=== PATIENT | female | born 1935 | race Caucasian/White ===

== ENCOUNTER → 2023-05-16 10:31 | Outpatient (REF) | payer MEDICARE, SELFPAY ==
[2023-05-16 13:25] LABS: Blood Urea Nitrogen 36 mg/dl (7-17); Carbon Dioxide 29 mmol/L (22-30); Chloride 94 mmol/L (98-107); Glucose 118 mg/dl (70-99); Potassium 5.2 mmol/L (3.5-5.1); Sodium 132 mmol/L (135-145); eGFR > 60.00
== END ==
LOC: OLABSOL 10:31
PROVIDERS: ATTENDING PHYSICIAN Internal Medicine Cardiovascular Disease
DX: I10 Essential (primary) hypertension (principal)
CPT/HCPCS: 36415; 80048

== ENCOUNTER → 2023-05-28 09:45 | Outpatient (REF) | payer MEDICARE, SELFPAY ==
[2023-05-28 11:19] LABS: Blood Urea Nitrogen 29 mg/dl (7-17); Calcium 9.8 mg/dl (8.4-10.2); Carbon Dioxide 31 mmol/L (22-30); Chloride 97 mmol/L (98-107); Glucose 138 mg/dl (70-99); Sodium 133 mmol/L (135-145); eGFR > 60.00
== END ==
LOC: OLABSOL 09:45
PROVIDERS: ATTENDING PHYSICIAN Internal Medicine Cardiovascular Disease
DX: I10 Essential (primary) hypertension (principal)
CPT/HCPCS: 36415; 80048

== ENCOUNTER → 2023-07-30 09:36 | Outpatient (REF) | payer MEDICARE, SELFPAY ==
[2023-07-30 10:28] LABS: Hematocrit 36.2 % (37.0-47.0); Hemoglobin 11.6 g/dL (12.0-16.0); Mean Corpuscular Hgb 28.8 pg (27.0-31.0); Mean Corpuscular Volume 89.8 fL (81.0-99.0); Mean Platelet Volume 9.9 fL (7.4-10.4); Platelet Count 205 10^3/uL (130-400); Red Blood Cell Count 4.03 10^6/uL (4.20-5.40); Red Cell Dist. Width 14.1 % (11.5-14.5); White Blood Cell Count 5.7 10^3/uL (4.8-10.8)
[2023-07-30 10:43] LABS: ALT (SGPT) 25 U/L (0-35); AST (SGOT) 28 U/L (14-36); Alkaline Phosphatase 148 U/L (38-126); Blood Urea Nitrogen 33 mg/dl (7-17); Carbon Dioxide 29 mmol/L (22-30); Chloride 100 mmol/L (98-107); Glucose 115 mg/dl (70-99); Potassium 4.5 mmol/L (3.5-5.1); Sodium 134 mmol/L (135-145); Total Bilirubin 0.3 mg/dl (0.2-1.3); Total Protein 6.5 g/dl (6.3-8.2); eGFR > 60.00
[2023-07-30 10:47] LABS: C-Reactive Protein < 5.00 mg/L (0.0-10.00)
[2023-07-30 10:59] LABS: Erythrocyte Sed Rate 22 mm/hour (0-20)
[2023-07-30 12:48] LABS: Glycohemoglobin (HgbA1c) 7.2 % (4.0-5.6)
== END ==
LOC: OLABSOL 09:36
PROVIDERS: ATTENDING PHYSICIAN Nurse Practitioner Gerontology
DX: E11.65 Type 2 diabetes mellitus with hyperglycemia (principal); Z79.85 Long-term (current) use of injectable non-insulin antidiabetic drugs; R22.9 Localized swelling, mass and lump, unspecified; I10 Essential (primary) hypertension; E11.9 Type 2 diabetes mellitus without complications; I25.10 Atherosclerotic heart disease of native coronary artery without angina pectoris
CPT/HCPCS: 36415; 80053; 83036; 85027; 85652; 86140

== ENCOUNTER 2023-10-13 23:38 | Inpatient (IN) | payer MEDICARE, SELFPAY ==
[2023-10-13 18:07] VITALS: BP 142/88
--- NOTE | 2023-10-13 20:17 | ED.GENMED ---
History of Present Illness
General
Chief Complaint: Fall
Time Seen by Provider: 10/13/23 20:16
History of Present Illness
History of Present Illness:
HPI: Patient presents from [facility] after 2 falls. The first fall occurred earlier in the day and she struck her left elbow as the care she was trying to sit in moved. Later in the day, she felt as if her legs were moving correctly. She also tells
me that this is been ongoing for the last several weeks. At the distal left lower extremity due to the fall.
EXAM:
GENERAL: Well appearing in no distress
HEENT: Moist oral mucosa
CARDIOVASCULAR: No murmurs, normal heart rate, regular rhythm, No chest wall tenderness
PULMONARY: No respiratory distress, breath sounds are clear and equal
ABDOMEN: Soft with no peritoneal signs, no tenderness
NEUROLOGIC: Fair strength all extremities, no coordination deficits
PSYCHIATRIC: Appropriate mental status, normal insight and judgement
EXTREMITIES: Nontender, trace bilateral lower extremity edema, distal left lower extremity tenderness more consistent with ankle sprain
SKIN: Abrasion noted to posterior aspect of the left elbow with excellent active range of motion
TIME OF INITIAL ENCOUNTER: 8:20 PM
NUMBER AND COMPLEXITY OF PROBLEMS ADDRESSED AT THE ENCOUNTER
� Chronic conditions affecting care: High blood pressure, CHF, hyperlipidemia, diabetes, anxiety/depression
� Acute Exacerbation and/or Progression of Chronic Illness: This is an acute problem
� Differential Diagnosis includes: CVA unlikely as she has nonfocal neurologic examination, hypoglycemia, ankle sprain/ankle fracture, anemia
AMOUNT AND/OR COMPLEXITY OF DATA TO BE REVIEWED AND ANALYZED
� I performed an independent evaluation of and my interpretation is:
EKG:
CT: CAT scan of the brain shows no acute abnormality
X-rays: Tib-fib x-ray shows prior left TKA with soft tissue swelling, no fracture noted at the left elbow
Laboratory Studies: Urinalysis shows only questionable sign of urinary tract definite, CBC unremarkable, sodium is slightly low at 127, BUN to creatinine ratio was elevated
Other:
� Review of other/old records: CBC unremarkable from 07/30/2023, A1c was 7.2 earlier this year
� Clinical information was obtained by an independent historian: I spoke to nurse who spoke to EMS
� Prescriptions/Medications Considered but not given:
� Further testing considered but not performed:
RISK OF COMPLICATIONS AND/OR MORBIDITY OR MORTALITY OF PATIENT MANAGEMENT
� Social determinants of health affecting care: Resides at [facility]
� Discussion with other providers: Dr. Mar for admission at 10:32 PM
� Escalation of care including admission/observation vs risk of discharge considered: The patient continues to state that she has had some vague dysfunction to the lower extremities. Nurse had told me initially that she had been
doing very poorly even with pivoting. I spoke to the niece, Silvia Moreno, . Her sodium is newly elevated�she initially told me that she is on a diuretic but it is not on her list. She also tells me that she drinks a lot of water'.
Past History
Past History
ED Past Medical History: CHF, HTN, Hypercholesterolemia, NIDDM and Psychiatric (anxiety, depression)
ED Past Surgical History: Orthopedic (Aaron knee replacements)
Social History
Tobacco: Non-smoker
Alcohol: None
Drug: None
Personal:
Living: alone
Phy Exam
Physical Exam
Physical Exam:
See HPI
Course
Orders/Labs/Results
Orders:
Orders
10/13/23 20:23
CT Head W/o Iv Contrast Urgent
Comment:
Reason For Exam: gait dysfunction LE weakness
CR Elbow - Left Min 3 Views Urgent
Comment:
Reason For Exam: fall pain
CR Leg Tibia/fibula Left 2 Vw Urgent
Comment:
Reason For Exam: pain fall
10/13/23 20:41
Basic Metabolic Panel Urgent
Complete Blood Count/With Diff Urgent
10/13/23 21:03
Urinalysis Reflex To Culture Urgent
Date Specimen was Collected: 10/13/23
Time Specimen was Collected: 21:01
Urine Microscopic Reflex Cult Urgent
Urine Culture Urgent
TALISHA Source: U
Specimen Description:
Date Specimen was Collected: 10/13/23
Time Specimen was Collected: 21:01
Abnormal Lab Results
10/13/23 10/13/23
20:41 21:03
Absolute Monos (auto) 0.8 H 10^3/uL
(0.1-0.6)
Lymphocytes % 18.2 L %
(20.5-51.1)
Monocytes % 9.8 H %
(1.7-9.3)
Sodium 127 L mmol/L
(135-145)
Chloride 92 L mmol/L
(98-107)
BUN 25 H mg/dl
(7-17)
Glucose 143 H mg/dl
(70-99)
Calcium 10.5 H mg/dl
(8.4-10.2)
Urine Ketones Trace A
(Negative)
Leukocyte Esterase Rfl Trace A
(Negative)
Urine Bacteria (Reflex) Moderate A
(Negative)
10/13/23 20:41
10/13/23 20:41
Vital Signs
Initial and Last Documented VS:
Initial Vital Signs
Temp Pulse Resp BP Pulse Ox
98.4 F 77 18 142/88 98
10/13/23 18:07 10/13/23 18:07 10/13/23 18:07 10/13/23 18:07 10/13/23 18:07
Last Documented Vital Signs
Temp Pulse Resp BP Pulse Ox
98.4 F 77 18 142/88 98
10/13/23 18:07 10/13/23 18:07 10/13/23 18:07 10/13/23 18:07 10/13/23 18:07
*Critical Care Note
Total Time (30-74mins, 75-104mins- exclusive of procedures): Not Applicable
ED Attending Note
-
Portions of this chart may have been created with voice recognition software.� Occasional wrong word or��sound alike� substitutions may have occurred due to the inherent limitations of voice recognition software.
Discharge Plan
Departure
Prescriptions:
No Action
atorvastatin [Lipitor] 40 MG tablet
40 mg PO DAILY
metformin 500 MG tablet
500 mg PO DAILY
isosorbide mononitrate 30 MG tablet extended release 24 hr
30 mg PO DAILY
clonazepam 0.5 MG tablet
0.25 mg PO PRN PRN (Reason: anxiety)
amlodipine [Norvasc] 10 MG tablet
10 mg PO DAILY
metoprolol succinate 25 MG tablet extended release 24 hr
25 mg PO DAILY
oxybutynin chloride 5 MG tablet
5 mg PO DAILY
lisinopril 40 MG tablet
40 mg PO DAILY
Referrals:
Krishan Robledo PA-C [Family Provider] -
Interventions
Interventions:
*Risk Screen - Suicide Last Done: 10/13/23 18:07
*General Assessment Last Done: 10/13/23 18:07
*Neglect/Abuse Screening Last Done: 10/13/23 18:07
*ED COVID-19 Vaccine History Last Done: 10/13/23 21:08
ED-Musculoskeletal Assessment Last Done: 10/13/23 20:14
ED- Neurological Assessment Last Done: 10/13/23 20:14
ED-Skin Assessment Last Done: 10/13/23 20:14
Discharge Date and Time
Print Language: LATVIAN
[2023-10-13 20:47] LABS: % Basophils 0.5 % (0-2); % Eosinophils 1.1 % (0-6); % Immature Granulocytes 0.4 % (0-0.5); % Lymphocytes 18.2 % (20.5-51.1); % Monocytes 9.8 % (1.7-9.3); Absolute Eosinophils 0.1 10^3/uL (0-0.7); Absolute Lymphocytes 1.6 10^3/uL (1.2-3.4); Absolute Monocytes 0.8 10^3/uL (0.1-0.6); Hemoglobin 12.8 g/dL (12.0-16.0); Mean Corp Hgb Conc. 34.6 g/dL (33.0-37.0); Mean Corpuscular Hgb 28.6 pg (27.0-31.0); Mean Corpuscular Volume 82.8 fL (81.0-99.0); Mean Platelet Volume 9.1 fL (7.4-10.4); Nucleated Red Blood Cells % 0 %; Platelet Count 217 10^3/uL (130-400); Red Blood Cell Count 4.47 10^6/uL (4.20-5.40); Red Cell Dist. Width 14.2 % (11.5-14.5); White Blood Cell Count 8.5 10^3/uL (4.8-10.8)
[2023-10-13 21:09] LABS: Urine Albumin Negative (Neg - Trace); Urine Bilirubin Negative (Negative); Urine Character Clear (Clear); Urine Color Yellow; Urine Glucose Negative (Negative); Urine Ketone Trace (Negative); Urine Leukocyte Trace (Negative); Urine Nitrite Negative (Negative); Urine Occult Blood Negative (Negative); Urine Urobilinogen Negative (Neg - 1+)
[2023-10-13 21:16] LABS: Blood Urea Nitrogen 25 mg/dl (7-17); Calcium 10.5 mg/dl (8.4-10.2); Carbon Dioxide 26 mmol/L (22-30); Chloride 92 mmol/L (98-107); Glucose 143 mg/dl (70-99); Potassium 4.4 mmol/L (3.5-5.1); Sodium 127 mmol/L (135-145); eGFR > 60.00
[2023-10-13 21:19] LABS: Urine Squamous Cell 0-2 /LPF (Few)
[2023-10-13 21:20] LABS: Urine Bacteria Moderate (Negative); Urine Red Blood Cell 0-2 /HPF (0-2)
--- NOTE | 2023-10-13 22:38 | HPS.HSE ---
Family Physician
-
Family Physician: Krishan Robledo PA-C
Chief Complaint
-
Fall, left ankle pain, left elbow skin tear
History of Present Illness
88-year-old female from [facility] after 2 reported falls earlier in the day. She reports she was in the dining marcum earlier this morning went to sit down in the chair but the chair rolled out from underneath of her and she fell
landing on her left elbow sustaining a skin tear. She then states later in the afternoon in her apartment she was standing to make a sandwich was unable to move her left leg then fell over again. She complains of pain with swelling to her left
ankle. She reports she feels that her legs just gave out and felt weak. She denies LOC, headache, sore throat, fever, chills, chest pain, palpitations, shortness breath, cough, abdominal pain, nausea, vomiting, diarrhea, urinary symptoms. She is
chronic ambulatory dysfunction and uses a walker at baseline. She is past medical history of DJD, CHF, HTN, HLD, anxiety, depression, DM 2, bilateral knee replacement
Medical History
Past Medical History
Past Medical History: Reports Other
Additional Past Medical History:
DJD
CHF
HTN
HLD
anxiet
depression
DM 2
bilateral knee replacement
Chronic ambulatory dysfunction uses walker at baseline
Past Surgical History: Reports Other
Additional Past Surgical History:
bilateral knee replacement
Social History
Tobacco: Non-smoker
Alcohol: None
Drug: None
Personal: Single
Living: Alone
Employment: Retired
Family History
Family History: Not pertinent
Allergies / Home Medications
Allergies reflects when Allergies were last updated in [employer].
Home Medications with original date entered in [employer]
Allergy/Medication List:
Allergies
Allergy/AdvReac Type Severity Reaction Status Date / Time
No Known Allergies Allergy Verified 10/13/23 18:06
Home Medications
amlodipine 10 mg tablet (Norvasc) 10 mg PO DAILY 10/28/20
atorvastatin 40 mg tablet (Lipitor) 40 mg PO DAILY 10/28/20
clonazepam 0.5 mg tablet 0.25 mg PO PRN PRN anxiety 10/28/20
isosorbide mononitrate 30 mg tablet,extended release 24 hr 30 mg PO DAILY 10/28/20
lisinopril 40 mg tablet 40 mg PO DAILY 10/28/20
metformin 500 mg tablet 500 mg PO BID AT 0800,1700 10/28/20
metoprolol succinate 25 mg tablet,extended release 24 hr 25 mg PO DAILY 10/28/20
oxybutynin chloride 5 mg tablet 5 mg PO BID 10/28/20
Review of Systems
-
History Source: Patient
Constitutional: Denies Fever or Chills
EENT: Denies Sore Throat or Runny Nose
Respiratory: Denies Cough or Trouble Breathing
Cardiac: Denies Chest Pain, Diaphoresis, Palpitations or Syncope
Abdomen/GI: Denies Abdominal Pain, Nausea, Vomiting, Diarrhea, Constipated, Bloody Stools or Black Stools
: Denies Dysuria, Frequency, Flank Pain, Incontinence, Difficulty Voiding or Urgency
Musculoskeletal: Reports Joint Pain (Left ankle medial lateral aspect)
Skin: Denies Itching or Rash
Neurological: Reports Weakness (reported to lower legs ); Denies Dizzy or Headache
Endocrine: Reports No Symptoms
Hematologic/Lymphatic: Reports No Symptoms
Psych: Reports Calm
Physical Exam
Vital Signs
Vital Signs
Temp Pulse Resp BP Pulse Ox
98.4 F 77 18 142/88 98
10/13/23 18:07 10/13/23 18:07 10/13/23 18:07 10/13/23 18:07 10/13/23 18:07
Physical Exam
General: Conversant; No Pain, Fever or Chills
HEENT: NormoCephalic, Anicteric, PERRLA and No Ptosis
Respiratory: Clear; No Wheezes, Rales or Rhonchi
Cardiac: S1/S2 and Regular Rhythm; No Murmur, Rub, Gallop or Peripheral Edema
GI: Soft, Non Tender, Non Distended and Normal Bowel Sounds
Genito-urinary: Deferred by me
Musculoskeletal: No Clubbing, No Cyanosis and No Edema
Skin: Warm and Dry; No Rash
Neuro: AO x 3, No Motor Deficits, Nonfocal/grossly intact, Cranial Nerves Intact and No Sensory Deficits; No Slurred Speech, Facial Droop or Tremors
Psych: Calm
Laboratory Results
-
10/13/23 20:41
10/13/23 20:41
Impression/Plan
-
Impression/plan:
Admit to MedSurg
#Mechanical fall with left elbow abrasion/left ankle sprain
-Ice to affected area, ankle stirrup splint
-Left elbow wash daily with soap and water apply nonadherent dressing
-Tylenol as needed pain
-PT/OT/case management
Left tib-fib x-ray: 1. Chronic healed fracture of the medial malleolus.
2. Moderate diffuse soft tissue swelling subcutaneous edema throughout the left lower leg
#Chronic ambulatory dysfunction uses walker at baseline
#DJD bilateral knees
#bilateral knee replacement
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
NA 127
-Fluid restrict 40 oz(patient has been drinking increased water due to elevated hypertension she reports)
-Check TSH with free T4 reflex, urine Osmo, urine NA, serum Osmo
-Follow BMP
#HTN-benign
BP 142/88
-Continue lisinopril 40 mg daily, metoprolol succinate 25 mg daily, Imdur 30 mg daily, amlodipine 10 mg daily
#DM2
Accu-Cheks with SSI, check HgbA1c
-Continue metformin
#Chronic CHF
I/O, daily weights
2D echo 10/10/2022: EF 60%, mild to moderate MR, borderline pulm HTN
#HLD
-Continue atorvastatin 40 mg at bedtime
#Anxiety/depression
Continue 0.25 Klonopin in a.m. as needed, 0.25 mg at bedtime scheduled
#Overactive bladder
-Continue oxybutynin 5 mg twice daily
DVT prophylaxis
Subcu Lovenox
DNR per patient
[2023-10-13 22:52] LABS: Osmolality Urine 402 mOsm/kg (300-900)
[2023-10-13 23:00] LABS: Osmolality Serum 275 mOsm/kg (275-300)
--- NOTE | 2023-10-13 23:29 | W.PN.UPDATE ---
Update Note
Progress Note Update
This is an addendum to the H&P written by DALJIT Young on 10/13/23.
88-year-old female past medical history of, hypertension, hypercholesteremia, diabetes, anxiety/depression, bilateral knee replacements here with 2 falls.� First fall resulted in laceration of left elbow during which time she likely injured her left
ankle.� She was unable to move her legs prior to the second fall which has been ongoing for several weeks.� Elbow x-ray shows no fracture.� CT head shows no acute abnormality.� Tibia-fibula x-ray shows no evidence of acute fracture.
Splint placed on left ankle.� Likely has left ankle sprain. PT/OT. Difficulty ambulating likely due to underlying knee arthritis.�
She has been drinking a lot of water today and her sodium level is 127 from baseline of 134.� Urine sodium, osmolality pending.� 40 ounce fluid restriction.
[2023-10-13 23:36] LABS: Urine Sodium 85 mmol/L (30-90)
[2023-10-13] MEDS: KLONOPIN 0.25 MG PO (23:39)
[2023-10-13 23:44] VITALS: BP 148/71
[2023-10-13 23:44] LABS: TSH Reflex To Free T4 0.99 uIU/ml (0.47-4.68)
[2023-10-14] VITALS (7 sets, daily range): BP systolic 96–157; BP diastolic 48–76; PULSE 57–69; O2SAT 96; BMI 30.8
--- NOTE | 2023-10-14 00:35 | PTCARENOTE ---
Pt arrived from ED via stretcher. PT oob x1 assist with RW to bed. Pt aaox3, cooperative. denies dizziness or sob. oriented to room. call crane within reach.
[2023-10-14 01:19] LABS: Glucose - Point of Care 141 mg/dl (70-99)
[2023-10-14] MEDS: TYLENOL 650 MG PO ×2 (01:35→18:31)
[2023-10-14 07:16] LABS: % Basophils 0.5 % (0-2); % Eosinophils 1.2 % (0-6); % Immature Granulocytes 0.4 % (0-0.5); % Lymphocytes 13.7 % (20.5-51.1); % Neutrophils 74.2 % (42.2-75.2); Absolute Eosinophils 0.1 10^3/uL (0-0.7); Absolute Monocytes 0.8 10^3/uL (0.1-0.6); Absolute Neutrophils 5.6 10^3/uL (1.4-6.5); Hematocrit 34.1 % (37.0-47.0); Hemoglobin 11.7 g/dL (12.0-16.0); Mean Corp Hgb Conc. 34.3 g/dL (33.0-37.0); Mean Corpuscular Hgb 28.8 pg (27.0-31.0); Mean Platelet Volume 9.8 fL (7.4-10.4); Nucleated Red Blood Cells % 0 %; Platelet Count 206 10^3/uL (130-400); Red Blood Cell Count 4.06 10^6/uL (4.20-5.40); White Blood Cell Count 7.5 10^3/uL (4.8-10.8)
[2023-10-14 07:56] LABS: Glucose - Point of Care 136 mg/dl (70-99)
[2023-10-14 08:00] LABS: Blood Urea Nitrogen 21 mg/dl (7-17); Calcium 9.8 mg/dl (8.4-10.2); Carbon Dioxide 27 mmol/L (22-30); Chloride 92 mmol/L (98-107); Estimated Creatinine Clearance 57 ml/min; Glucose 129 mg/dl (70-99); Sodium 128 mmol/L (135-145); eGFR > 60.00
--- NOTE | 2023-10-14 08:19 | W.PN.HOSP.TC ---
Addendum entered and electronically signed by Dariusz Moy MD 10/14/23 13:50:
I personally performed a history and physical exam of the patient and discussed management with the resident. I reviewed the resident's note and agree with the documented findings and plan of care HPI/CC except change in documentation.
Fall with left ankle pain. 88-year-old from [facility] living with 2 falls. She is was trying to sit down in the chair rolled out and fell landing on her elbow. In the afternoon she was trying to make a sandwich when the left leg would
not move and fell down again.
Tib/Fib- No radiographic evidence for acute fracture.
2. Left total knee arthroplasty in place without evidence for hardware loosening.
3. Moderate diffuse soft tissue swelling and subcutaneous edema.
Awake alert oriented
Cardiovascular system S1-S2 appreciated
Chest clear to auscultation
Abdomen soft and nontender
Left ankle with mild edema patient is able to move ankle-dorsiflexion plantarflexion possible.
# Falls with left elbow abrasion and left ankle sprain
Wound care to the left elbow
Check orthostatic vital signs
Patient complains of pain in the right leg. Will get femur x-rays with a fall
GIANNA bandage to LEft Ankle.
# Chronic ambulatory dysfunction-uses walker at baseline
History of bilateral knee replacements
PT OT
# Hyponatremia
Patient admitted to drinking a lot of water
Osmolality studies consistent with SIADH
Fluid restriction
TSH normal , normal cortisol
Follow BMP
Will give 20 mg of p.o. Lasix today
# Hypertension-continue lisinopril 40 mg daily, metoprolol 25 mg daily, amlodipine 10 mg daily
# Vykgfewu-Wode-Illa sliding scale and metformin
Hemoglobin A1c 6.8
# Dysuria-urine with 6-10 WBCs therefore will give ceftriaxone and wait for cultures.
# Chronic heart failure with preserved ejection fraction
Echo 10/10/2022-EF 60%, mild to moderate MR, borderline pulmonary hypertension
Intake output charting Daily weights
# Hyperlipidemia/Atherosclerosis-continue atorvastatin
# Anxiety - as needed Klonopin
# Overactive bladder-continue oxybutynin 5 mg twice daily
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
# DVT prophylaxis-subcutaneous Lovenox
# DNR status
Called and left a message for patient's niece Silvia Camp
May need rehab
Original Note:
Today's Communication/Plan
-
Fluid restriction, daily weights
PT/OT evaluation
Assessment / Plan
Assessment / Plan
88-year-old female with history of degenerative joint disease, CHF, hypertension, hyperlipidemia, diabetes type 2, bilateral knee replacement, anxiety depression, who was brought in from [facility] post fall x 2, with no loss
of consciousness or head trauma.
#Mechanical fall
No LOC or head trauma
Head CT 10/12: No CT evidence for acute intracranial hemorrhage or transcortical infarct. Moderate diffuse cerebral and cerebellar volume loss. Mild white matter leukoaraiosis in both cerebral hemispheres. Severe bilateral hyperostosis frontalis
interna with the inner table of the frontal bones causing mild mass effect on the anterior frontal lobe gyri.
-Left elbow abrasion: wash daily with soap and water apply nonadherent dressing
-Tylenol as needed for pain
-PT/OT/case management
left ankle sprain:
Pain with pronation of foot, tenderness of ankle
Left tibia/fibula x-ray 10/12: 1. No radiographic evidence for acute fracture. Left total knee arthroplasty in place without evidence for hardware loosening. Moderate diffuse soft tissue swelling and subcutaneous edema.
-Ice to affected area, ankle stirrup splint
- Pain management
Chronic ambulatory dysfunction:
uses walker at baseline
Complains of right thigh and leg pain, worse at night.
DJD bilateral knees, Hx of bilateral knee replacement
- Right hip xray
- PT/OT
#Hyponatremia
Lore multifactorial: SIADH + polydipsia
Na 128, serum osm 275, urine sodium 85, urine osmolality 402
Patient admits to drinking lots of water yesterday, after being wrongly informed that increased fluid intake helps hypertension??
TSH normal
-Fluid restrict 40 oz(patient has been drinking increased water due to elevated hypertension she reports)
-Follow BMP
#HTN
-Continue lisinopril 40 mg daily, metoprolol succinate 25 mg daily, Imdur 30 mg daily, amlodipine 10 mg daily
#UTI
Trace leukocyte esterace, wbcs, moderate bacteria
-Abx, pending culture
#DM2
Accu-Cheks with SSI, check HgbA1c
-Continue metformin
#Chronic CHF
I/O, daily weights
2D echo 10/10/2022: EF 60%, mild to moderate MR, borderline pulm HTN
#HLD
-Continue atorvastatin 40 mg at bedtime
#Anxiety/depression
Continue 0.25 Klonopin in a.m. as needed, 0.25 mg at bedtime scheduled
#Overactive bladder
-Continue oxybutynin 5 mg twice daily
DVT prophylaxis
Subcu Lovenox
Anticipated Discharge: 24 - 48 hours
Subjective/Interval History
-
Date of Service: October 14, 2023
Objective Data
-
Labs:
Laboratory Results
10/13/23 10/14/23
20:41 05:18
WBC 8.5 7.5
Hgb 12.8 11.7 L
Hct 37.0 34.1 L
Plt Count 217 206
Sodium 127 L 128 L
Potassium 4.4 4.0
Chloride 92 L 92 L
Carbon Dioxide 26 27
BUN 25 H 21 H
Creatinine 0.8 0.7
Glucose 143 H 129 H
Calcium 10.5 H 9.8
Vital Signs:
Vital Signs
Temp Pulse Resp BP Pulse Ox
97.7 F 73 18 141/62 97
10/14/23 01:22 10/14/23 01:22 10/14/23 01:22 10/14/23 01:22 10/14/23 01:22
Review of Systems
-
History Source: Patient
Constitutional: Reports No Symptoms; Denies Fever
Respiratory: Reports No Symptoms; Denies Cough or Trouble Breathing
Cardiac: Reports No Symptoms; Denies Chest Pain, Palpitations or Syncope
Abdomen/GI: Reports No Symptoms; Denies Abdominal Pain, Nausea, Vomiting, Diarrhea or Constipated
Breast: Reports No Symptoms
Genitourinary: Reports Other (Hesitancy)
Neuro: Reports No Symptoms; Denies Dizzy or Headache
[2023-10-14] MEDS: NOVOLOG FLEXPEN-LOW RESISTANCE SC ×3 (08:34→18:44)
[2023-10-14] MEDS: IMDUR (EXTENDED RELEASE) 30 MG PO (08:36)
[2023-10-14] MEDS: LIPITOR 40 MG PO (08:36)
[2023-10-14] MEDS: NORVASC 10 MG PO (08:36)
[2023-10-14] MEDS: DITROPAN PO (08:36)
[2023-10-14] MEDS: ZESTRIL 40 MG PO (08:36)
[2023-10-14] MEDS: TOPROL XL 25 MG PO (08:36)
[2023-10-14] MEDS: GLUCOPHAGE 500 MG PO ×2 (08:37→18:32)
[2023-10-14] MEDS: DITROPAN 5 MG PO ×2 (08:43→21:39)
[2023-10-14 10:16] LABS: Glycohemoglobin (HgbA1c) 6.8 % (4.0-5.6)
[2023-10-14 11:47] LABS: Glucose - Point of Care 110 mg/dl (70-99)
[2023-10-14 12:04] LABS: Cortisol, Random 12.8 ug/dl
--- NOTE | 2023-10-14 12:38 | WOUNDNOTE ---
R BUTTOCK, SAME ON L
--- NOTE | 2023-10-14 12:40 | WOUNDNOTE ---
WON RN note: Patient admitted with acute R knee pain, dehydration.
See H&P for complete history. Lives at [facility].
PMH: CHF,HTN,DM, Anxiety and depression.
Wound Location and type/assessment: Patient admitted with: L elbow skin tear s/p fell out of chair patient reports. Small open area, base pink, scant drainage. Patient turned to sides with minimal assist. Has chronic appearing dry scabbed old stage
2 PI vs MASD. Patient states she has to wear diapers due to urinary incontinence. Also claims she sits allot at home. Uses Zinc barrier cream, suspect reason for very dry raised areas on both buttocks. Silicone foam in use on both buttocks. Heels
and sacrum are intact.
Appetite: Good.
Pressure redistribution devices in place: Accumax, encouraged turning and gave air cushion to use when sitting.
Plan: L elbow dressing changed with adaptic and silicone foam, silicone foams maintained on buttocks. Offloading.
Will confirm orders with hospitalist and update nurse. Updated care plan and will follow as needed.
Note to case management of equipment requested for discharge: None.
[2023-10-14] MEDS: STERILE WATER FOR INJECTION 10 ML IV (14:04)
[2023-10-14] MEDS: ROCEPHIN 1000 MG IV (14:04)
[2023-10-14] MEDS: LASIX 20 MG PO (15:06)
[2023-10-14 15:57] LABS: Glucose - Point of Care 259 mg/dl (70-99)
--- NOTE | 2023-10-14 16:11 | CM ---
software development project manager reviewed patient's chart and met with patient and patient resides at [facility] living, patient is independent with adl's and uses a walker with ambulation, patient was seen by physical therapy and recommendation is for skilled
placement. options reviewed with patient and patient has selected [facility] and [facility], referrals sent to both facilities.
Pharmacy [facility]
PCP: Krishan Robledo
Plan; Skilled placement, referrals sent to [facility] and [facility].
[2023-10-14] MEDS: LOVENOX SC ×2 (18:32→18:36)
[2023-10-14 21:16] LABS: Glucose - Point of Care 108 mg/dl (70-99)
[2023-10-14] MEDS: KLONOPIN 0.25 MG PO (21:38)
--- NOTE | 2023-10-14 23:00 | PTCARENOTE ---
Addendum entered by Klaus Oneal RN 10/14/23 23:11:
2299: Pt reports that her pain resolved without being given PRN Tylenol or BenGay cream. Will continue to monitor.
Original Note:
2199: Pt reports 10/10 right knee pain, PRN Tylenol unable to be given until 2230. Pt reports using arthritis cream at home. [employer] Pierre Cuevas notified, order for BenGay topical TID ordered.
[2023-10-15] MEDS: TYLENOL 650 MG PO ×2 (01:41→09:03)
[2023-10-15 06:00] VITALS: BMI 30.3
[2023-10-15 07:29] VITALS: BP 103/51; BP 121/56; BP 125/56; PULSE 56; PULSE 57; PULSE 60
[2023-10-15 07:36] LABS: Glucose - Point of Care 136 mg/dl (70-99)
[2023-10-15 07:38] LABS: Hematocrit 33.8 % (37.0-47.0); Hemoglobin 11.9 g/dL (12.0-16.0); Mean Corp Hgb Conc. 35.2 g/dL (33.0-37.0); Mean Corpuscular Hgb 29.1 pg (27.0-31.0); Mean Corpuscular Volume 82.6 fL (81.0-99.0); Mean Platelet Volume 9.8 fL (7.4-10.4); Platelet Count 211 10^3/uL (130-400); Red Blood Cell Count 4.09 10^6/uL (4.20-5.40); Red Cell Dist. Width 13.9 % (11.5-14.5); White Blood Cell Count 6.2 10^3/uL (4.8-10.8)
[2023-10-15 08:25] LABS: Blood Urea Nitrogen 26 mg/dl (7-17); Calcium 9.8 mg/dl (8.4-10.2); Carbon Dioxide 25 mmol/L (22-30); Chloride 95 mmol/L (98-107); Estimated Creatinine Clearance 57 ml/min; Glucose 112 mg/dl (70-99); Potassium 3.8 mmol/L (3.5-5.1); Sodium 130 mmol/L (135-145); eGFR > 60.00
[2023-10-15] MEDS: NOVOLOG FLEXPEN-LOW RESISTANCE SC ×2 (08:37→16:00)
[2023-10-15] MEDS: IMDUR (EXTENDED RELEASE) 30 MG PO (09:03)
[2023-10-15] MEDS: BenGay-Like 1 APPLIC TOPICAL ×3 (09:04→22:27)
[2023-10-15] MEDS: LIPITOR 40 MG PO (09:04)
[2023-10-15] MEDS: NORVASC 10 MG PO (09:04)
[2023-10-15] MEDS: ZESTRIL 40 MG PO (09:04)
[2023-10-15] MEDS: TOPROL XL 25 MG PO (09:04)
[2023-10-15] MEDS: GLUCOPHAGE 500 MG PO ×2 (09:04→16:56)
[2023-10-15] MEDS: DITROPAN 5 MG PO ×2 (09:04→20:26)
--- NOTE | 2023-10-15 09:30 | W.PN.HOSP.TC ---
Addendum entered and electronically signed by Dariusz Moy MD 10/15/23 13:55:
Fall with left ankle pain. 88-year-old from [facility] living with 2 falls. She is was trying to sit down in the chair rolled out and fell landing on her elbow. In the afternoon she was trying to make a sandwich when the left leg would
not move and fell down again.
Tib/Fib- No radiographic evidence for acute fracture.
2. Left total knee arthroplasty in place without evidence for hardware loosening.
3. Moderate diffuse soft tissue swelling and subcutaneous edema.
Awake alert oriented
Cardiovascular system S1-S2 appreciated
Chest clear to auscultation
Abdomen soft and nontender
Left ankle immobilizer.
# Falls with left elbow abrasion and left ankle sprain
Wound care to the left elbow
Check orthostatic vital signs
Patient complains of pain in the right leg. SEVERE ARTHRITIS in the RIGHT HIP
GIANNA bandage to Left Ankle.
# Chronic ambulatory dysfunction-uses walker at baseline
History of bilateral knee replacements
PT OT
# Hyponatremia
Patient admitted to drinking a lot of water
Osmolality studies consistent with SIADH
Fluid restriction
TSH normal , normal cortisol
Follow BMP
20 mg lasix again today
# Hypertension-continue lisinopril 40 mg daily, metoprolol 25 mg daily, amlodipine 10 mg daily
# Awrjzrbk-Xsqe-Yhws sliding scale and metformin
Hemoglobin A1c 6.8
# Dysuria-urine with 6-10 WBCs therefore will give ceftriaxone and wait for cultures.
# Chronic heart failure with preserved ejection fraction
Echo 10/10/2022-EF 60%, mild to moderate MR, borderline pulmonary hypertension
Intake output charting Daily weights
# Hyperlipidemia/Atherosclerosis-continue atorvastatin
# Anxiety - as needed Klonopin
# Overactive bladder-continue oxybutynin 5 mg twice daily
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
# DVT prophylaxis-subcutaneous Lovenox
# DNR status
D/W SW-DC tomorrow
D/W RN
Called Shaji Vega again went to message today!
Original Note:
Today's Communication/Plan
-
Fluid restriction, follow BMP, daily weights and IandOs, likely discharge tomorrow
Assessment / Plan
Assessment / Plan
88-year-old female with history of degenerative joint disease, CHF, hypertension, hyperlipidemia, diabetes type 2, bilateral knee replacement, anxiety, depression, who was brought in from [facility] post fall x 2, with no loss
of consciousness or head trauma.
#Mechanical fall
No LOC or head trauma
Head CT 10/12: No CT evidence for acute intracranial hemorrhage or transcortical infarct. Moderate diffuse cerebral and cerebellar volume loss. Mild white matter leukoaraiosis in both cerebral hemispheres. Severe bilateral hyperostosis frontalis
interna with the inner table of the frontal bones causing mild mass effect on the anterior frontal lobe gyri.
Right leg pain- X-ray R Hip 10/14/2023: No radiographic evidence for acute fracture or dislocation. SEVERE ARTHRITIS in the RIGHT HIP (either osteoarthritis or an inflammatory arthropathy) which appears similar to 01/29/2023.
Left elbow abrasion: Small. wound care on board
left ankle sprain: some pain with active ankle flexion/extension, tenderness of ankle
Left tibia/fibula x-ray 10/12: 1. No radiographic evidence for acute fracture. Left total knee arthroplasty in place without evidence for hardware loosening. Moderate diffuse soft tissue swelling and subcutaneous edema.
-Ice to affected area, gianna compression wrap to left ankle
- Pain management as needed
- PT/OT/case management
#Hyponatremia
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
Na 128, serum osm 275, urine sodium 85, urine osmolality 402
Patient admits to drinking lots of water yesterday, after being wrongly informed that increased fluid intake helps hypertension??
TSH normal
-Improving Na 130, s/p 20mg PO lasix. 3.6kg weight loss since admission
-Fluid restrict 48 oz
-Follow BMP
Chronic ambulatory dysfunction:
uses walker at baseline
Complains of right thigh and leg pain, worse at night.
DJD bilateral knees, Hx of bilateral knee replacement
- PT/OT
#HTN
-Continue lisinopril 40 mg daily, metoprolol succinate 25 mg daily, Imdur 30 mg daily, amlodipine 10 mg daily
#UTI
Pt reported hesitancy
Trace leukocyte esterace, wbcs, moderate bacteria
-Abx given, Urinary symptoms resolved.
-Urine culture pending
#DM2
Accu-Cheks with SSI, check HgbA1c
-Continue metformin
#Chronic CHF
I/O, daily weights
2D echo 10/10/2022: EF 60%, mild to moderate MR, borderline pulm HTN
#HLD
-Continue atorvastatin 40 mg at bedtime
#Anxiety/depression
Continue 0.25 Klonopin in a.m. as needed, 0.25 mg at bedtime scheduled
#Overactive bladder
-Continue oxybutynin 5 mg twice daily
DVT prophylaxis
SubQ Lovenox
Code status: Full code
Anticipated Discharge: Within 24 hours
Subjective/Interval History
-
Date of Service: October 15, 2023
Improved sodium, 3.6kg weight loss with fluid restriction and one dose Furosemide 20mg
No acute overnight events
Objective Data
-
Labs:
Laboratory Results
10/15/23
06:01
WBC 6.2
Hgb 11.9 L
Hct 33.8 L
Plt Count 211
Sodium 130 L
Potassium 3.8
Chloride 95 L
Carbon Dioxide 25
BUN 26 H
Creatinine 0.7
Glucose 112 H
Calcium 9.8
Vital Signs:
Vital Signs
Temp Pulse Resp BP Pulse Ox
98.7 F 57 21 103/51 93
10/15/23 07:29 10/15/23 07:29 10/15/23 07:29 10/15/23 07:29 10/15/23 07:29
I&O
10/14/23 10/15/23 10/16/23
06:59 06:59 06:59
Intake Total 1080 / 1080
Balance 1080 / 1080
Review of Systems
-
History Source: Patient
Constitutional: Reports Weight Loss and Fatigue; Denies Fever or Night Sweats
EENT: Reports Other (Left eye visual disturbance)
Respiratory: Denies Cough or Trouble Breathing
Cardiac: Denies Chest Pain, Diaphoresis, Palpitations or Syncope
Abdomen/GI: Denies No Symptoms, Abdominal Pain, Nausea, Vomiting, Diarrhea or Constipated
Genitourinary: Denies No Symptoms, Dysuria, Difficulty Voiding or Bleeding
Musculoskeletal: Reports Joint Pain (Right hip/knee, left ankle)
Neuro: Denies Dizzy or Headache
Physical Exam
-
General: Well Developed, Well Nourished, No Apparent Distress and Comfortable
HEENT: Normocephalic, Atraumatic and Moist Mucous Membranes
Respiratory: Clear to Auscultation and Non Labored Respirations; Negative Wheezes, Rales, Rhonchi, Crackles or Accessory Resp Muscle Use
Cardiac: Regular Rhythm and S1/S2; Negative Murmur, Rub or Calf Tenderness
GI: Nontender, Nondistended and Normal Bowel Sounds
Musculoskeletal: No Clubbing, No Cyanosis, No Edema and Edema, Left Lower Extrem
Skin: Warm and Dry; Negative Rash, Ulcers or Lesions
Neuro: Awake, Alert and Oriented
Psych: Calm
[2023-10-15 10:47] VITALS: BP 114/55
[2023-10-15 11:42] LABS: Glucose - Point of Care 161 mg/dl (70-99)
[2023-10-15] MEDS: NOVOLOG FLEXPEN-LOW RESISTANCE 1 UNITS SC (12:02)
--- NOTE | 2023-10-15 13:10 | PN.CDI ---
CDI
- -
CDI:
Physician Documentation Request
Admit Date: 10/13/23 23:38
Dear Doctor Chinmay,
Please review the following and provide your response in the progress notes.
Clinical Indicators:
- 7/ Wound note indicates old stage 2 bilateral buttocks pressure injury, POA
Physician documentation of the type and location of wounds is required for compliant documentation. Based on the above clinical findings and your assessment, please provide the following in your progress note:
1. Location of the ulcer/wound, including laterality.
2. Type (etiology) of ulcer/wound:
- Diabetic ulcer
- Arterial (ischemic) ulcer
- Traumatic wound
- Venous stasis ulcer
- Pressure (decubitus) ulcer
- Non-healing surgical wound
- Other
- Unable to determine
Use of terms such as suspected, likely, concern for, or probable (associated with a specific diagnosis that is being evaluated, monitored, or treated as if it exists) are acceptable and can be coded in the inpatient setting, when documented at the
time of discharge.
Thank you,
Jeremiah Beckwith RN
CDI Specialist
Please use your independent medical judgment in providing your response.
*Source: National Pressure Ulcer Advisory Panel (NPUAP)
[2023-10-15] MEDS: LASIX 20 MG PO (14:17)
[2023-10-15 15:42] VITALS: BP 102/50
[2023-10-15 15:55] LABS: Glucose - Point of Care 149 mg/dl (70-99)
--- NOTE | 2023-10-15 16:16 | CM ---
Patient has been accepted at [facility] skilled tomorrow, patient is worried about getting some clothes from her apartment at [place] and child welfare caseworker reached out to [place] to see if anyone can bring patient's clothes over with her to [facility].
Plan; Skilled placement at [facility] bed is available for patient tomorrow, 10/16/23
[facility]
Report [phone]
[2023-10-15] MEDS: LOVENOX SC (16:57)
[2023-10-15 21:19] LABS: Glucose - Point of Care 132 mg/dl (70-99)
[2023-10-15] MEDS: KLONOPIN 0.25 MG PO (22:27)
[2023-10-15 23:00] VITALS: BP 122/59
[2023-10-16 03:00] VITALS: BP 125/107; BP 135/54; BP 146/80; PULSE 57; PULSE 65; PULSE 71
--- NOTE | 2023-10-16 03:10 | PTCARENOTE ---
Pt reports anxiety and difficulty sleeping. House TIE FASTENER Jean Pierre Cuevas notified, order for 1x melatonin 5mg ordered. Pt offered 1x melatonin 5mg but pt refused and reported to this RN that she has 5/10 neck and lower back pain. PRN Tramadol 25mg
provided to pt.
[2023-10-16] MEDS: TYLENOL 650 MG PO (03:38)
[2023-10-16 06:00] VITALS: BMI 30.2
[2023-10-16 07:00] VITALS: BP 128/87
[2023-10-16 07:31] LABS: Hematocrit 36.3 % (37.0-47.0); Hemoglobin 12.6 g/dL (12.0-16.0); Mean Corp Hgb Conc. 34.7 g/dL (33.0-37.0); Mean Corpuscular Volume 83.6 fL (81.0-99.0); Mean Platelet Volume 9.9 fL (7.4-10.4); Platelet Count 245 10^3/uL (130-400); Red Blood Cell Count 4.34 10^6/uL (4.20-5.40); Red Cell Dist. Width 14.1 % (11.5-14.5); White Blood Cell Count 7.3 10^3/uL (4.8-10.8)
[2023-10-16 08:02] LABS: Blood Urea Nitrogen 34 mg/dl (7-17); Calcium 9.6 mg/dl (8.4-10.2); Carbon Dioxide 28 mmol/L (22-30); Chloride 94 mmol/L (98-107); Estimated Creatinine Clearance 50 ml/min; Glucose 116 mg/dl (70-99); Potassium 4.2 mmol/L (3.5-5.1); Sodium 132 mmol/L (135-145); eGFR > 60.00
[2023-10-16 08:33] LABS: Glucose - Point of Care 123 mg/dl (70-99)
--- NOTE | 2023-10-16 08:45 | W.PN.HOSP.TC ---
Addendum entered and electronically signed by Dariusz Moy MD 10/16/23 13:46:
I personally performed a history and physical exam of the patient and discussed management with the resident. I reviewed the resident's note and agree with the documented findings and plan of care HPI/CC except for change in documentation.
She feels well. Left ankle edema much better.
Cardiovascular system S1-S2 appreciated
Chest clear to auscultation
Abdomen soft and nontender
Treat constipation
Ready for rehab
I was not able to reach patient's niece on the phone yesterday or day before . I shared this with the patient she states that ' she does not have time for me do not bother to call her.'
Case management - pt has no transport to go to rehab today
Original Note:
Today's Communication/Plan
-
Discharge planning
Assessment / Plan
Assessment / Plan
88-year-old female with history of degenerative joint disease, CHF, hypertension, hyperlipidemia, diabetes type 2, bilateral knee replacement, anxiety, depression, who was brought in from [facility] living [facility] post fall x 2, with no loss
of consciousness or head trauma.
#Mechanical fall
No LOC or head trauma
Head CT 10/12: No CT evidence for acute intracranial hemorrhage or transcortical infarct. Moderate diffuse cerebral and cerebellar volume loss. Mild white matter leukoaraiosis in both cerebral hemispheres. Severe bilateral hyperostosis frontalis
interna with the inner table of the frontal bones causing mild mass effect on the anterior frontal lobe gyri.
Right leg pain- X-ray R Hip 10/14/2023: No radiographic evidence for acute fracture or dislocation. SEVERE ARTHRITIS in the RIGHT HIP (either osteoarthritis or an inflammatory arthropathy) which appears similar to 01/29/2023.
Left elbow abrasion: Small. wound care on board
left ankle sprain: some pain with active ankle flexion/extension, tenderness of ankle
Left tibia/fibula x-ray 10/12: 1. No radiographic evidence for acute fracture. Left total knee arthroplasty in place without evidence for hardware loosening. Moderate diffuse soft tissue swelling and subcutaneous edema.
-Ice to affected area, tayo compression wrap to left ankle
- Pain management as needed
- PT/OT/case management
#Hyponatremia
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
On admission, Na 128, serum osm 275, urine sodium 85, urine osmolality 402
Patient admits to drinking lots of water yesterday, after being wrongly informed that increased fluid intake helps hypertension??
TSH normal
-Improving Na 132, s/p 20mg PO lasix x2. 4.1kg weight loss since admission. Fluid restriction 48oz
-Follow BMP
-Likely discharge today
Chronic ambulatory dysfunction:
uses walker at baseline
Complains of right thigh and leg pain, worse at night.
DJD bilateral knees, Hx of bilateral knee replacement
- PT/OT
#HTN
-Continue lisinopril 40 mg daily, metoprolol succinate 25 mg daily, Imdur 30 mg daily, amlodipine 10 mg daily
#UTI
Pt reported hesitancy
Trace leukocyte esterace, wbcs, moderate bacteria
-Abx given, Urinary symptoms resolved.
-Urine culture pending
#DM2
Accu-Cheks with SSI, check HgbA1c
-Continue metformin
#Chronic CHF
I/O, daily weights
2D echo 10/10/2022: EF 60%, mild to moderate MR, borderline pulm HTN
#HLD
-Continue atorvastatin 40 mg at bedtime
#Anxiety/depression
Continue 0.25 Klonopin in a.m. as needed
#Overactive bladder
-Continue oxybutynin 5 mg twice daily
DVT prophylaxis
SubQ Lovenox
Code status: Full code
Anticipated Discharge: Today
Subjective/Interval History
-
Date of Service: October 16, 2023
Na improving. No acute events overnight
Objective Data
-
Labs:
Laboratory Results
10/16/23
06:14
WBC 7.3
Hgb 12.6
Hct 36.3 L
Plt Count 245
Sodium 132 L
Potassium 4.2
Chloride 94 L
Carbon Dioxide 28
BUN 34 H
Creatinine 0.8
Glucose 116 H
Calcium 9.6
Vital Signs:
Vital Signs
Temp Pulse Resp BP Pulse Ox
97.8 F 98 16 128/87 96
10/16/23 07:00 10/16/23 07:00 10/16/23 07:00 10/16/23 07:00 10/16/23 07:00
I&O
10/15/23 10/16/23 10/17/23
06:59 06:59 06:59
Intake Total 1080 / 1080 1200 / 1200
Balance 1080 / 1080 1200 / 1200
Review of Systems
-
History Source: Patient
Constitutional: Reports No Symptoms; Denies Fever or Fatigue
Respiratory: Reports No Symptoms; Denies Cough or Trouble Breathing
Cardiac: Reports No Symptoms; Denies Chest Pain, Diaphoresis, Palpitations or Syncope
Abdomen/GI: Reports No Symptoms and Constipated; Denies Abdominal Pain or Diarrhea
Genitourinary: Reports No Symptoms; Denies Dysuria, Difficulty Voiding or Bleeding
Musculoskeletal: Reports Joint Pain and Joint Swelling (ankle)
Neuro: Denies Dizzy or Headache
Hematologic / Lymphatic: Denies Bleeding
Physical Exam
-
General: Well Developed, Well Nourished, No Apparent Distress and Comfortable; Negative Respiratory Distress
HEENT: Normocephalic and Atraumatic
Respiratory: Clear to Auscultation and Non Labored Respirations; Negative Wheezes, Rales, Rhonchi, Crackles or Accessory Resp Muscle Use
Cardiac: Regular Rhythm and S1/S2; Negative Murmur, Rub or Calf Tenderness
GI: Soft, Nontender, Nondistended and Normal Bowel Sounds
Genito-urinary: No Costovertebral Tender
Musculoskeletal: No Clubbing, No Cyanosis and Edema, Left Lower Extrem (mild ankle edema and bruising)
Skin: Warm and Dry
Neuro: Awake, Alert and Oriented
Psych: Calm
[2023-10-16] MEDS: NOVOLOG FLEXPEN-LOW RESISTANCE SC ×2 (09:57→17:01)
[2023-10-16] MEDS: IMDUR (EXTENDED RELEASE) 30 MG PO (09:58)
[2023-10-16] MEDS: NORVASC 10 MG PO (09:58)
[2023-10-16] MEDS: ZESTRIL 40 MG PO (09:58)
[2023-10-16] MEDS: LIPITOR 40 MG PO (09:58)
[2023-10-16] MEDS: DITROPAN 5 MG PO ×2 (09:58→20:20)
[2023-10-16] MEDS: TOPROL XL 25 MG PO (09:58)
[2023-10-16] MEDS: GLUCOPHAGE 500 MG PO ×2 (09:58→17:08)
[2023-10-16] MEDS: BenGay-Like 1 APPLIC TOPICAL ×2 (09:59→17:09)
--- NOTE | 2023-10-16 10:26 | CM ---
Addendum entered by Ida Ng 10/16/23 13:28:
Pt not medically appropriate for BLS transport. No WC vans available today.
Family cannot transport pt today.
made aware. Will plan for tomorrow. Pt agreeable.
Original Note:
CM following re: d/c planning.
D/c plan is for pt to be transferred to [facility].
Discussed with Michaela in admissions, confirmed bed availability for today.
Discussed with attending, pt medically stable for d/c.
Report: [phone]

Goal: transfer to [facility]
[2023-10-16] MEDS: MIRALAX 17 GRAMS PO (10:59)
--- NOTE | 2023-10-16 12:46 | W.DCSUMMARY ---
Documented by User: Thais Navarro MD, Resident 10/16/23 13:18
Discharge Summary
Discharge Data
Date of Admission: 10/13/23
Date of Discharge: 10/16/23
-
Pending Results: No
Hospital Course
88-year-old female with history of degenerative joint disease, hypertension, CHF, hyperlipidemia, anxiety/depression, type 2 diabetes mellitus, bilateral knee replacement, presented to [facility] ED from [facility] living status
post falls x 2 with no head trauma, no reported mental status change, or loss of consciousness. She complained of left elbow abrasion and left ankle pain. Upon presentation vitals were stable and chemistries found hyponatremia to 128. Urinalysis
showed trace leukocyte Estrace and moderate bacteria, and patient complained of urge to urinate without passing urine. Left leg x-ray showed no fracture, and moderate soft tissue swelling indicating left ankle sprain. For right leg pain x-ray of
right hip showed no evidence of fracture or dislocation and severe arthritis of the right hip. Serum and urine testing showed no natremia secondary to SIADH. Patient also admitted to increased water intake.
Wound care, pain management, physical therapy, icing and compression throughout stay. Hyponatremia was treated with fluid restriction, furosemide 20 mg x 2, with marked improvement upon discharge. Patient was given IV drug ceftriaxone x 1 for UTI.
Urine culture from 10/12 grew mixed zbigniew. All home medications were continued throughout stay.
Per physical therapy evaluation, patient is discharged to SNF with instructions for fluid restriction, and follow-up with primary care Within 2 weeks of discharge.
Relevant imaging/tests
CR right Hip 10/14/2023: No radiographic evidence for acute fracture or dislocation. SEVERE ARTHRITIS in the RIGHT HIP (either osteoarthritis or an inflammatory arthropathy) which appears similar to 01/29/2023.
CR Leg Tibia/fibula 10/13/2023: No radiographic evidence for acute fracture. Left total knee arthroplasty in place without evidence for hardware loosening. Moderate diffuse soft tissue swelling and subcutaneous edema.
CT Head W/o Iv Contrast 10/13/2023: No CT evidence for acute intracranial hemorrhage or transcortical infarct. Moderate diffuse cerebral and cerebellar volume loss. Mild white matter leukoaraiosis in both cerebral hemispheres. Severe bilateral
hyperostosis frontalis interna with the inner table of the frontal bones causing mild mass effect on the anterior frontal lobe gyri.
Consults:
Wound care: Arnaldo Bob MD
Physical Therapy, Occupational Therapy.
Discharge Plan
-
Patient Disposition: Long Term/SNF
Discharge Diagnosis/Procedures: Fall, left ankle sprain, elbow abrasion, hyponatremia, hypertension, diabetes, chronic heart failure with preserved ejection fraction, hyperlipidemia, atherosclerosis, anxiety, overactive bladder
Diet: Restrict fluids to 48 oz
Activity: As tolerated
Other Services: PT and OT
Activity Restrictions/Additional Instructions:
Wound Care Instructions
Buttocks: barrier cream after cleaning
L elbow clean with soap and water, silicone foam change q 2-3 days and prn drainage.
Air chair cushion when sitting, can take upon discharge.
Referrals:
Krishan Robledo PA-C [Family Provider] -
Additional Discharge Medication Instructions: Please follow-up with your primary care doctor within 2 weeks of discharge
Prescriptions:
New
clonazepam 0.5 mg Tablet
0.25 mg PO DAILYPRN PRN (Reason: anxiety) Qty: 2 0RF
Continued
atorvastatin [Lipitor] 40 MG tablet
40 mg PO DAILY
metformin 500 MG tablet
500 mg PO BID@0900,1700
isosorbide mononitrate 30 MG tablet extended release 24 hr
30 mg PO DAILY
amlodipine [Norvasc] 10 MG tablet
10 mg PO DAILY
metoprolol succinate 25 MG tablet extended release 24 hr
25 mg PO DAILY
oxybutynin chloride 5 MG tablet
5 mg PO BID
lisinopril 40 MG tablet
40 mg PO DAILY
nystatin [Nystop] 100,000 unit/gram Powder
1 applic TOPICAL BID
Discontinued
clonazepam 0.5 MG tablet
0.25 mg PO DAILYPRN PRN (Reason: anxiety)
loperamide [Anti-Diarrheal (loperamide)] 2 mg Tablet
2 mg PO Q4HPRN PRN (Reason: diarrhea)
Discharge Orders:
Discharge Patient (As Directed); Ordered 10/16/23
Ordered By: Thais Navarro
Discharge Date and Time
Print Language: PUERTO RICAN

Documented by User: Dariusz Moy MD 10/16/23 13:43
Discharge Summary
Discharge Data
Date of Admission: 10/13/23
Date of Discharge: 10/16/23
Discharge Plan
-
Patient Disposition: Long Term/SNF
Discharge Diagnosis/Procedures: Fall, left ankle sprain, elbow abrasion, hyponatremia, hypertension, diabetes, chronic heart failure with preserved ejection fraction, hyperlipidemia, atherosclerosis, anxiety, overactive bladder
Diet: Restrict fluids to 48 oz
Activity: As tolerated
Other Services: PT and OT
Activity Restrictions/Additional Instructions:
Wound Care Instructions
Buttocks: barrier cream after cleaning
L elbow clean with soap and water, silicone foam change q 2-3 days and prn drainage.
Air chair cushion when sitting, can take upon discharge.
Referrals:
Krishan Robledo PA-C [Family Provider] -
Additional Discharge Medication Instructions: Please follow-up with your primary care doctor within 2 weeks of discharge
Prescriptions:
New
clonazepam 0.5 mg Tablet
0.25 mg PO DAILYPRN PRN (Reason: anxiety) Qty: 2 0RF
Continued
atorvastatin [Lipitor] 40 MG tablet
40 mg PO DAILY
metformin 500 MG tablet
500 mg PO BID@0900,1700
isosorbide mononitrate 30 MG tablet extended release 24 hr
30 mg PO DAILY
amlodipine [Norvasc] 10 MG tablet
10 mg PO DAILY
metoprolol succinate 25 MG tablet extended release 24 hr
25 mg PO DAILY
oxybutynin chloride 5 MG tablet
5 mg PO BID
lisinopril 40 MG tablet
40 mg PO DAILY
nystatin [Nystop] 100,000 unit/gram Powder
1 applic TOPICAL BID
Discontinued
clonazepam 0.5 MG tablet
0.25 mg PO DAILYPRN PRN (Reason: anxiety)
loperamide [Anti-Diarrheal (loperamide)] 2 mg Tablet
2 mg PO Q4HPRN PRN (Reason: diarrhea)
Discharge Orders:
Discharge Patient (As Directed); Ordered 10/16/23
Ordered By: Thais Navarro
Discharge Date and Time
Print Language: PUERTO RICAN
[2023-10-16 12:59] LABS: Glucose - Point of Care 216 mg/dl (70-99)
[2023-10-16] MEDS: NOVOLOG FLEXPEN-LOW RESISTANCE 2 UNITS SC (13:05)
[2023-10-16 16:13] VITALS: BP 102/44
[2023-10-16 16:40] LABS: Glucose - Point of Care 124 mg/dl (70-99)
[2023-10-16] MEDS: LOVENOX 40 MG SC (17:09)
[2023-10-16 21:14] LABS: Glucose - Point of Care 111 mg/dl (70-99)
[2023-10-16] MEDS: BenGay-Like TOPICAL (22:30)
[2023-10-16] MEDS: KLONOPIN PO (22:30)
[2023-10-16 23:26] VITALS: BP 121/56
[2023-10-17] MEDS: KLONOPIN 0.25 MG PO (00:16)
[2023-10-17] MEDS: BenGay-Like 1 APPLIC TOPICAL ×2 (00:16→08:29)
[2023-10-17] MEDS: TYLENOL 650 MG PO ×2 (04:26→12:23)
[2023-10-17 05:27] VITALS: BMI 30.2
[2023-10-17 07:00] VITALS: BP 121/60
[2023-10-17 08:12] LABS: Glucose - Point of Care 136 mg/dl (70-99)
[2023-10-17] MEDS: TOPROL XL 25 MG PO (08:26)
[2023-10-17] MEDS: IMDUR (EXTENDED RELEASE) 30 MG PO (08:26)
[2023-10-17] MEDS: NOVOLOG FLEXPEN-LOW RESISTANCE SC (08:26)
[2023-10-17] MEDS: ZESTRIL 40 MG PO (08:27)
[2023-10-17] MEDS: NORVASC 10 MG PO (08:28)
[2023-10-17] MEDS: DITROPAN 5 MG PO (08:28)
[2023-10-17] MEDS: LIPITOR 40 MG PO (08:28)
[2023-10-17] MEDS: GLUCOPHAGE 500 MG PO (08:28)
--- NOTE | 2023-10-17 11:08 | CM ---
manager cardiac spoke with [facility] admissions and there is still a bed available for patient today. [facility]ian has a w/c van warehouse order picker for 3pm, cost is $90 ayla does not have wallet and has to reach out to family to pay for transport.
Plan; Skilled placement at [facility] today.
[facility]
Report [phone]
--- NOTE | 2023-10-17 11:40 | W.PN.HOSP.TC ---
Addendum entered and electronically signed by Dariusz Moy MD 10/17/23 12:47:
old stage 2 sacral PI
Original Note:
Today's Communication/Plan
-
Discharge
Assessment / Plan
Assessment / Plan
88-year-old female with history of degenerative joint disease, CHF, hypertension, hyperlipidemia, diabetes type 2, bilateral knee replacement, anxiety, depression, who was brought in from [facility] post fall x 2, with no loss
of consciousness or head trauma.
Able to move both hips with no pain, left ankle no edema
CVS s1 s2 normal
# Falls with left elbow abrasion and left ankle sprain
Wound care to the left elbow
Patient complains of pain in the right leg. SEVERE ARTHRITIS in the RIGHT HIP
GIANNA bandage to Left Ankle.
# Chronic ambulatory dysfunction-uses walker at baseline
History of bilateral knee replacements
PT OT
# Hyponatremia
Patient admitted to drinking a lot of water
Osmolality studies consistent with SIADH
Fluid restriction
TSH normal , normal cortisol
Improved
# Hypertension-continue lisinopril 40 mg daily, metoprolol 25 mg daily, amlodipine 10 mg daily
# Zuhcxfrf-Fwqt-Lfhl sliding scale and metformin
Hemoglobin A1c 6.8
# Dysuria-urine with 6-10 WBCs therefore will give ceftriaxone and wait for cultures.Stop AB
Cx neg
# Chronic heart failure with preserved ejection fraction
Echo 10/10/2022-EF 60%, mild to moderate MR, borderline pulmonary hypertension
# Hyperlipidemia/Atherosclerosis-continue atorvastatin
# Anxiety - as needed Klonopin
# Overactive bladder-continue oxybutynin 5 mg twice daily
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
# DVT prophylaxis-subcutaneous Lovenox
# DNR status
Called and spoke to niece and updated
D/W Case management
Total discharge coordination time 36 min
Anticipated Discharge: Today
Subjective/Interval History
-
Date of Service: October 17, 2023
Objective Data
-
Vital Signs:
Vital Signs
Temp Pulse Resp BP Pulse Ox
98.0 F 60 18 121/60 93
10/17/23 07:00 10/17/23 07:00 10/17/23 07:00 10/17/23 07:00 10/17/23 07:00
I&O
10/16/23 10/17/23 10/18/23
06:59 06:59 06:59
Intake Total 1200 / 1200 1200 / 1200
Balance 1200 / 1200 1200 / 1200
[2023-10-17 12:09] LABS: Glucose - Point of Care 212 mg/dl (70-99)
[2023-10-17] MEDS: NOVOLOG FLEXPEN-LOW RESISTANCE 2 UNITS SC (12:23)
[2023-10-17 15:00] VITALS: BP 124/63
== END 2023-10-17 15:41 | DRG 644 ==
LOC: 4 WEST ACU 23:38
PROVIDERS: Clinical Nurse Specialist Family Health; Student in an Organized Health Care Education/Training Program; ADMITTING PHYSICIAN Hospitalist; ATTENDING PHYSICIAN Hospitalist; EMERGENCY PHYSICIAN Emergency Medicine; FAMILY PHYSICIAN Physician Assistant
DX: E22.2 Syndrome of inappropriate secretion of antidiuretic hormone (principal); I50.32 Chronic diastolic (congestive) heart failure; N39.0 Urinary tract infection, site not specified; I11.0 Hypertensive heart disease with heart failure; E11.9 Type 2 diabetes mellitus without complications; F32.A Depression, unspecified; L89.152 Pressure ulcer of sacral region, stage 2; Z66 Do not resuscitate; S93.402A Sprain of unspecified ligament of left ankle, initial encounter; S50.312A Abrasion of left elbow, initial encounter; W07.XXXA Fall from chair, initial encounter; W18.39XA Other fall on same level, initial encounter; Y92.098 Other place in other non-institutional residence as the place of occurrence of the external cause; M85.2 Hyperostosis of skull; M16.11 Unilateral primary osteoarthritis, right hip; M17.0 Bilateral primary osteoarthritis of knee; E78.5 Hyperlipidemia, unspecified; F41.9 Anxiety disorder, unspecified; N32.81 Overactive bladder; K59.00 Constipation, unspecified; R26.89 Other abnormalities of gait and mobility; Z96.653 Presence of artificial knee joint, bilateral; Z99.89 Dependence on other enabling machines and devices; Z79.84 Long term (current) use of oral hypoglycemic drugs; Z79.899 Other long term (current) drug therapy
CPT/HCPCS: 70450; 73080; 73502; 73590; 80048; 81003; 81015; 82533; 82962; 83036; 83930; 83935; 84300; 84443; 85025; 85027; 87086; 97116; 97163; 97167; 99285

== ENCOUNTER → 2023-10-23 10:01 | Outpatient (REF) | payer OTHER, MEDICARE, SELFPAY ==
[2023-10-23 10:29] LABS: Hematocrit 37.5 % (37.0-47.0); Hemoglobin 12.5 g/dL (12.0-16.0); Mean Corp Hgb Conc. 33.3 g/dL (33.0-37.0); Mean Corpuscular Hgb 28.8 pg (27.0-31.0); Mean Corpuscular Volume 86.4 fL (81.0-99.0); Mean Platelet Volume 9.6 fL (7.4-10.4); Platelet Count 264 10^3/uL (130-400); Red Blood Cell Count 4.34 10^6/uL (4.20-5.40); Red Cell Dist. Width 14.4 % (11.5-14.5); White Blood Cell Count 7.6 10^3/uL (4.8-10.8)
[2023-10-23 10:54] LABS: ALT (SGPT) 24 U/L (0-35); AST (SGOT) 28 U/L (14-36); Albumin 4.4 g/dl (3.5-5.0); Alkaline Phosphatase 133 U/L (38-126); Blood Urea Nitrogen 24 mg/dl (7-17); Calcium 10.1 mg/dl (8.4-10.2); Carbon Dioxide 27 mmol/L (22-30); Chloride 99 mmol/L (98-107); Glucose 100 mg/dl (70-99); Potassium 4.7 mmol/L (3.5-5.1); Sodium 137 mmol/L (135-145); Total Bilirubin 0.5 mg/dl (0.2-1.3); eGFR > 60.00
== END ==
LOC: OLABP 10:01
PROVIDERS: ATTENDING PHYSICIAN Family Medicine
DX: I11.0 Hypertensive heart disease with heart failure (principal); I50.9 Heart failure, unspecified; E11.9 Type 2 diabetes mellitus without complications; E87.1 Hypo-osmolality and hyponatremia; S93.402D Sprain of unspecified ligament of left ankle, subsequent encounter; M25.572 Pain in left ankle and joints of left foot; R26.2 Difficulty in walking, not elsewhere classified; F41.9 Anxiety disorder, unspecified
CPT/HCPCS: 36415; 80053; 85027

== ENCOUNTER → 2023-12-04 15:43 | Outpatient (REF) | payer MEDICARE, SELFPAY | LOC: RAD 15:43 | PROVIDERS: ATTENDING PHYSICIAN Family Medicine | DX: M79.604 Pain in right leg (principal); M79.605 Pain in left leg | CPT/HCPCS: 73564; 73590; 73630 ==